=== PATIENT | male | born 1950 | race Caucasian/White ===

== ENCOUNTER 2023-05-30 19:28 | Emergency (ER) | payer MEDICARE, BC ==
[~2023-05-30] VITALS: Ht 172.7 cm; Wt 84.5 kg
[~2023-05-30 19:28] MED LIST: ARICEPT10 MG PO; ASPIRIN 81M81 MG/TA2 PO; ATARAX25 MG PO; CHOLESTEROL MED; LIPITOR 40MG TA40 MG PO; LORTAB 5/500 501 TAB PO; MIRALAX PA17 GM/Dose PO; NAMENDA 10MG TA10 MG PO; OMEGA-3 1000 MG1 CAP PO; SIMVASTATIN20 MG PO; SLEEPING PILL; TEMAZEPAM30 MG PO; VIT E; VITAMIN D31000 I1 PO; ZOLOFT 50MG50 MG PO
[2023-05-30 20:05] LABS: BASO # 0.1 K/mm3 (0.0-0.2); BASO % 0.8 % (0.0-2.0); EOS % 0.1 % (0.0-4.0); GRAN # 5.7 K/mm3 (1.4-6.5); GRAN % 75.5 % (42.2-75.2); HEMATOCRIT 43.1 % (42.0-52.0); HEMOGLOBIN 14.3 g/dl (13.5-18.0); LYMPH # 0.9 K/mm3 (1.2-3.4); MEAN CELL VOLUME 87 fl (80.0-100.0); MEAN CORPUSCULAR HEMOGLOBIN 29 pg (27-31); MEAN CORPUSCULAR HGB CONC 33 g/dl (33.0-37.0); MONO # 0.8 K/mm3 (0.1-0.6); MONO % 11.2 % (1.7-9.3); PLATELET COUNT 180 K/mm3 (130-400); RED BLOOD COUNT 4.94 M/mm3 (4.20-5.60); REDCELL DISTRIBUTION WIDTH-CV 13.1 % (11.5-14.5)
[2023-05-30 20:16] LABS: ALBUMIN 3.8 gm/dL (3.4-4.8); BILIRUBIN,TOTAL 0.5 mg/dL (0.2-1.2); CALCIUM 9.3 mg/dL (8.4-10.2); CREATININE, serum 1.1 mg/dL (0.72-1.25); POTASSIUM 4.2 mmol/L (3.5-4.5); TOTAL PROTEIN 6.8 gm/dL (6.2-8.1)
[2023-05-30 20:31] LABS: COLLECTION METHOD CATHETER
[2023-05-30 20:42] LABS: PH 5.5 (5.0-8.5); URINE APPEARANCE Clear (CLEAR/HAZY); URINE BLOOD TRACE-LYSED (NEGATIVE); URINE COLOR Yellow (YELLOW); URINE GLUCOSE Negative (NEGATIVE); URINE KETONE Negative (NEGATIVE); URINE NITRATE Negative (NEGATIVE); URINE PROTEIN(semi-quant) Negative (NEGATIVE); URINE UROBILINOGEN 0.2 E.U/dL (0.2-1.0)
[2023-05-30 20:49] LABS: SQUAMOUS EPITHELIAL 0-2 /hpf (0-10); URINE RBC None Seen /hpf (0-2); URINE WBC 0-2 /hpf (0-2)
[2023-05-30 20:50] LABS: URINE BACTERIA None Seen /hpf (NONE SEEN)
[2023-05-30 22:33] VITALS: BP 140/77; PULSE 64; TEMP 99.7
== END 2023-05-30 22:33 | disposition home or self-care (01) ==
LOC: COL.ER 19:28
PROVIDERS: Personal Emergency Response Attendant
DX: R41.82 Altered mental status, unspecified (principal); F03.90 Unspecified dementia, unspecified severity, without behavioral disturbance, psychotic disturbance, mood disturbance, and anxiety